=== PATIENT | female | born 1990 | race Caucasian/White ===

== ENCOUNTER 2022-11-20 10:40 | Outpatient (CLI) | payer MEDICAID ==
[2022-11-20 10:59] LABS: HCT - HEMATOCRIT 41.7 % (37.0-47.0); HGB - HEMOGLOBIN 13.3 g/dL (12.0-16.0); MEAN CORPUSCULAR HEMOGLOBIN 28.2 pg (27.0-31.0); MEAN CORPUSCULAR HGB CONC 31.9 g/dL (32.0-36.0); MEAN CORPUSCULAR VOLUME 88.5 fL (81.0-99.0); MEAN PLATELET VOLUME 10.4 fL (7.9-10.8); RED BLOOD COUNT 4.71 10^6/uL (4.20-5.40); RED CELL DISTRIBUTION WIDTH 13.1 % (12.0-15.0); WHITE BLOOD COUNT 3.5 x10^3/uL (4.8-10.8)
[2022-11-20 11:32] LABS: THYROID STIMULATING HORMONE 2.4 uIU/mL (0.34-5.60)
== END 2022-11-20 10:41 | disposition home or self-care (01) ==
LOC: LAB 10:40
PROVIDERS: ATTEND Nurse Practitioner
DX: N93.9 Abnormal uterine and vaginal bleeding, unspecified (principal)
CPT/HCPCS: 36415; 82728; 84443; 85027

== ENCOUNTER 2022-12-04 19:19 | Outpatient (CLI) | payer MEDICAID ==
--- NOTE | 2022-12-05 12:04 | Ultrasound Report ---
PROCEDURE: Pelvic Complete INDICATIONS: AUB TECHNIQUE: Real-time transabdominal scanning was performed of the pelvic organs, with image documentation. COMPARISON: None FINDINGS: Uterus: Uterus is anteverted and normal in size at 9.4 x 4.4 x 5.9 cm. The myometrium is homogeneou s. The endometrium measures 10 mm in combined thickness. Normal uterine vascularity. Ovaries: The right ovary measures approximately 4.1 x 1.6 x 2.6 cm, with a calculated ovarian volume of 8.6 cc. The left ovary measures 3.3 x 2.2 x 4.0 cm, with a calculated ovarian volume of 15.6 cc. The ovaries have a normal sonographic appearance. Less than 12 follicles can be seen in each ovary . No adnexal masses are seen. No cystic lesions measuring greater than 3 cm. Other: No free pelvic fluid. IMPRESSION: Normal pelvic ultrasound. Reviewed by: Isabella García MD on 12/05/2022 12:03 PM PDT Approved by: Isabella García MD on 12/05/2022 12:03 PM PDT Station ID: [id number]
== END 2022-12-04 19:20 | disposition home or self-care (01) ==
LOC: DI 19:19
PROVIDERS: ATTEND Nurse Practitioner
DX: N93.9 Abnormal uterine and vaginal bleeding, unspecified (principal)